=== PATIENT | female | born 1965 | race Caucasian/White ===

== ENCOUNTER 2019-11-12 11:29 | Emergency (ER) | payer OTHER, SELFPAY ==
[2019-11-12 11:45] VITALS: BP 105/67; PULSE 107; RESP 16; TEMP 36.9; O2SAT 96
--- NOTE | 2019-11-12 12:27 | ED.WOUNDLAC ---
HPI - Wound/Laceration General Chief Complaint: Wound/Laceration Stated Complaint: pos abscess Time Seen by Provider: 11/12/19 12:20 Source: patient and RN notes reviewed Mode of arrival: ambulatory Limitations: no limitations History of Present Illness HPI narrative: 53-year-old female presents with concern for wound to her suprapubic area. Reports red, painful area that drained last night in her pubic hair. Reports issues with wounds in the past. She has a history of diabetes. Reports fever of 101 last week. She denies any other symptoms such as shortness of breath, cough, body aches. Body four view annotation: 1. Wound Related Data Home Medications Medication Instructions Recorded Confirmed Trulicity 11/12/19 alprazolam 11/12/19 canagliflozin [Invokana] mg 11/12/19 lisinopril 11/12/19 metformin mg 11/12/19 pantoprazole PO 11/12/19 rosuvastatin mg 11/12/19 venlafaxine mg PO 11/12/19 Allergies Allergy/AdvReac Type Severity Reaction Status Date / Time latex Allergy Severe EYES AND Verified 09/21/18 16:28 ORAL SWELLING, BEATHING DIFFICULTIES levofloxacin Allergy Unknown NAUSEA AND Verified 09/21/18 16:28 VOMITING Review of Systems Review of Systems: Narrative: CONSTITUTIONAL: Denies malaise, chills, sweats, or fever. CARDIOVASCULAR: Denies chest pain, palpitations, or edema. RESPIRATORY: Denies cough or dyspnea. GASTROINTESTINAL: Denies abdominal pain, nausea, vomiting, diarrhea SKIN: Reports pain full, red, swollen area in the pubic hair, drained last night MUSCULOSKELETAL: Denies myalgia. All systems reviewed & are unremarkable except as noted in HPI and below PMFSH Family History Family History (Updated 02/12/16 @ 23:19 by DOCTOR UNKNOWN) Father Family history of diabetes mellitus in first degree relative Family history of malignant neoplasm Sibling Family history of malignant neoplasm of uterus Other Diabetes mellitus Family history of alcoholism Family history of coronary artery disease Hypertension Social History Social History Smoking status: Former smoker Second hand tobacco smoke exposure: No Alcohol intake: never Comments At time of signature, agree with nursing past medical, surgical, social and family history. There is no relevant family history pertinent to the presenting complaint Exam Narrative: Exam Narrative: GENERAL: Well-appearing, well-nourished, and in no acute distress. HEAD: Normocephalic EYES: PERRLA, conjunctivae clear. ENT: Nares clear. Mucous membranes moist. NECK: Supple. CHEST: No respiratory distress. Speaks in full sentences. HEART: Regular rate and rhythm. SKIN: Warm, dry, no rash. Approximately 4 cm x 3 cm area of induration, redness, tenderness with scab with purulent drainage noted in the suprapubic area, no fluctuation noted. NEURO: Alert and oriented x3. PSYCH: Normal mood and affect Course Course Emergency Course: Patient not opening wound due to no fluctuation, current drainage on its own. Patient agrees with this plan. Patient understands to monitor the wound and re-present if symptoms do not improve. Culture will be sent of drainage. Patient is aware of diagnosis, understands and agrees to treatment plan. Anticipatory guidance given. Patient agrees to follow-up as directed and is aware of reasons to seek care at the emergency department. Portions of this record may have been created with voice recognition software Vital Signs Vital signs: Vital Signs Temperature 98.4 F 11/12/19 11:45 Pulse Rate 107 H 11/12/19 11:45 Respiratory Rate 16 11/12/19 11:45 Blood Pressure 105/67 11/12/19 11:45 Pulse Oximetry 96 11/12/19 11:45 Temperature 98.4 F 11/12/19 11:45 Pulse Rate 107 H 11/12/19 11:45 Respiratory Rate 16 11/12/19 11:45 Blood Pressure 105/67 11/12/19 11:45 Pulse Oximetry 96 11/12/19 11:45 Reviewed. MDM - Wound/Laceration MDM Narrative Medi
--- NOTE | 2019-11-12 12:56 | PC.NURSE ---
after dc at 1237 requested note for work. 1247 aware of awaiting computer operations analyst for note. computer operations analyst doing procedure.
== END 2019-11-12 12:37 | disposition home or self-care (01) ==
PROVIDERS: Emergency Provider Nurse Practitioner; PCP Nurse Practitioner Psychiatric/Mental Health
DX: L02.214 Cutaneous abscess of groin (principal); Z87.891 Personal history of nicotine dependence; E11.9 Type 2 diabetes mellitus without complications; E78.00 Pure hypercholesterolemia, unspecified; Z79.84 Long term (current) use of oral hypoglycemic drugs
CPT/HCPCS: 87070; 87147; 87186; 87205; 99213; G0463

== ENCOUNTER 2020-06-19 10:35 | Outpatient (CLI) | payer OTHER, SELFPAY ==
[2020-06-19 12:01] LABS: SARS-CoV-2 Ag Positive (Negative)
== END 2020-06-19 10:36 | disposition home or self-care (01) ==
LOC: CHSLAB 10:39
PROVIDERS: PCP Nurse Practitioner Psychiatric/Mental Health; Visit Provider Nurse Practitioner Psychiatric/Mental Health
DX: U07.1 COVID-19 (principal)
CPT/HCPCS: 87426

== ENCOUNTER 2021-03-17 12:47 | Emergency (ER) | payer OTHER, SELFPAY ==
--- NOTE | ~2021-03-17 | XR_ITS ---
EXAMINATION: XR chest 2V EXAM DATE: 03/17/2021 15:45 INDICATION: weakness, LT Side Flank Pain, Hx Dm, Kidney Stones . TECHNIQUE: Frontal and lateral projections of the chest obtained and reviewed. There is no prior aguilar dy for comparison. FINDINGS: The lungs are clear. There are no pleural effusions. The cardiomediastinal silhouette is within normal limits. There is no pneumothorax suspected. The bones and soft tissues are unremarkab le. IMPRESSION: No acute cardiopulmonary findings. Reviewed, dictated and finalized at location B.
--- NOTE | ~2021-03-17 | CT_ITS ---
EXAMINATION: CT abdomen pelvis w con DATE: 03/17/2021 15:36 INDICATION: Upper abdominal pain. Left flank pain. Fever. TECHNIQUE: Computed tomography (CT) of the abdomen and pelvis was performed with 100 mL Omnipaque 350 intravenous contrast. Automated exposure control and iterative reconstruction technique were employe d. The dose-length product was 706.04 mGy-cm. COMPARISON: None. FINDINGS: The visualized portions of the lung bases demonstrate 3 mm nodules in left lower lobe, like ly benign. A calcified left lung nodule and calcified left hilar lymph nodes are consistent with old granulomatous disease. No pleural effusion. The heart size is normal. No pericardial effusion. There is a small sliding hiatal hernia. The liver is normal. There are changes of cholecystectomy. Calcific ations in the spleen are consistent with old granulomatous disease. The pancreas and adrenal glands a re normal. There is cortical thinning of the kidneys, right worse than left. There are 4 mm and 2 mm stones in right kidney. Other small calcifications in right kidney may be parenchymal. There are grea ter than ten 1-2 mm stones in left kidney. The appendix is normal. There are no dilated loops of agustín l. There are no pathologically enlarged lymph nodes. There is no free intraperitoneal fluid. There is mild thoracolumbar spondylosis. IMPRESSION: 1. Small sliding hiatal hernia. 2. Small bilateral nonobstructing kidney stones. Reviewed, dictated and finalized at location A.
[2021-03-17 13:18] VITALS: BP 132/71; PULSE 131; RESP 18; TEMP 37.6; O2SAT 98
[2021-03-17 13:56] LABS: Basophils Percent Auto 0.1 % (0.2-1.2); Eosinophils Percent Auto 0.1 % (0-4.4); Hemoglobin 14.2 g/dL (12.0-15.0); Immature Granulocyte Absolute 0.07 K/mm3 (0.00-0.031); Immature Granulocyte Percent A 0.4 % (0-0.5); Lymphocytes Absolute Auto 0.95 K/mm3 (0.9-3.2); Mean Corpuscular HGB Conc 31.6 g/dl (32-36); Mean Corpuscular Hemoglobin 27.2 pg (26-34); Mean Corpuscular Volume 86.2 fl (80-100); Mean Platelet Volume 10.2 fl (7.4-10.4); Monocytes Absolute Auto 0.8 K/mm3 (0.1-0.6); Neutrophils Percent Auto 88.4 % (45.5-73.1); Platelet Count Result 299 k/mm3 (150-375); Red Blood Count 5.22 M/mm3 (4.2-5.4); Red Cell Distribution Width 14.4 % (11.5-14.5); White Blood Count 15.9 K/mm3 (4.5-10.0)
[2021-03-17 14:02] LABS: Add Urine Microscopic? YES; Appearance Urine Clear (Clear); Bilirubin Urine Negative (Negative); Blood Urine Negative (Negative); Color Urine Straw (Yellow); Glucose Urine UA 3+ mg/dL (Negative); Ketones Urine Negative (Negative); Leukocyte Esterase Ur Negative LEU/UL (Negative); Nitrate Urine Negative (Negative); Protein Urine Negative (Negative); Specific Grav Ur 1.008 (1.001-1.035); Squamous Epithelial Cell Urine Rare /hpf (Few); Urobilinogen Urine Negative mg/dL (<2.0); WBC Urine 0-3 /hpf
[2021-03-17 14:16] VITALS: BP 103/65; PULSE 62; RESP 16; O2SAT 98
[2021-03-17 14:22] LABS: Anion Gap 17 mmol/L (8-16); Blood Urea Nitrogen 15 mg/dL (7-17); Calcium 9.9 mg/dL (8.4-10.2); Carbon Dioxide 25 mmol/L (22-30); Chloride 98 mmol/L (98-107); Estimated CRCL calculation 84 ml/min; Estimated Glomerular Filt Rate > 60; Glucose 129 mg/dL (65-110); Potassium 3.8 mmol/L (3.4-5.0); Sodium 140 mmol/L (137-145)
--- NOTE | 2021-03-17 14:49 | ED.GENADULT ---
HPI - General Adult General Chief complaint: Urogenital-Female Stated complaint: Kidney Stone Time Seen by Provider: 03/17/21 14:17 Source: patient and RN notes reviewed Mode of arrival: ambulatory Limitations: no limitations History of Present Illness HPI narrative: This is a 55 year old female with history of kidney stones who presents for evaluation of left flank pain and nausea. Patient states she developed left flank pain yesterday. Her pain has been constant and she states it radiates to her left back. She is concerned she may have a kidney stone. She made an appointment with her urologist but she was referred to ER since she develop fever 100.5 today. She also reports prior to arrival she develop and emesis x 2. She also reports right upper abdominal pain. She denies taking any medication for her fever today. She denies cough or sob. She denies hematuria but she reports increased urination. Related Data Home Medications Medication Instructions Recorded Confirmed alprazolam 11/12/19 10/07/20 Trulicity SUBCUT 10/07/20 10/07/20 dapagliflozin 10 mg tablet 10 mg PO DAILY 10/07/20 10/07/20 lisinopril 10 mg tablet 10 mg PO DAILY tablet 10/07/20 10/07/20 metformin 1,000 mg tablet 1,000 mg PO BID tablet 10/07/20 10/07/20 pantoprazole 40 mg tablet,delayed 40 mg PO DAILY tablet 10/07/20 10/07/20 release rosuvastatin 40 mg tablet 40 mg PO DAILY tablet 10/07/20 10/07/20 sertraline 50 mg tablet 50 mg PO DAILY 10/07/20 10/07/20 Allergies Allergy/AdvReac Type Severity Reaction Status Date / Time levofloxacin AdvReac Unknown NAUSEA AND Verified 03/17/21 14:15 VOMITING Review of Systems Review of Systems: All systems reviewed & are unremarkable except as noted in HPI and below PMFSH Past Medical History Medical History (Updated 03/17/21 @ 18:01 by Chely Graves MD) Anxiety Diabetes GERD (gastroesophageal reflux disease) Kidney stone Surgical History Surgical History (Updated 03/17/21 @ 14:56 by Chely Graves MD) H/O lithotripsy Family History Family History (Updated 02/12/16 @ 23:19 by DOCTOR UNKNOWN) Father Family history of diabetes mellitus in first degree relative Family history of malignant neoplasm Sibling Family history of malignant neoplasm of uterus Other Diabetes mellitus Family history of alcoholism Family history of coronary artery disease Hypertension Social History Social History (Updated 10/06/20 @ 07:30 by Caitlin Meade) Smoking status: Never smoker Second hand tobacco smoke exposure: No Alcohol intake: never Substance use: never Additional occupation/education comments: RN at [employer] Gender identity (if verbalized by the patient): Female Exam Const: General: no acute distress and alert Orientation/consciousness: patient oriented x3 Eyes: EOM: EOMs intact bilaterally Chest: Chest palpation & inspection: normal inspection of the chest Resp: Effort & Inspection: normal respiratory effort and no retractions Auscultation: clear to auscultation bilaterally Cardio: Rate: regular rate Rhythm: regular rhythm Heart sounds: no murmurs GI: GI Palp: Yes Soft to palpation, Yes Tenderness to palpation present (GI) (RUQ, LUQ) and No Guarding due to palpation present (GI) Auscultation: normal bowel sounds : General: Yes CVA tenderness on the left Skin: General skin exam: normal color Rashes: no rashes Neuro: General: patient oriented x3, moves all extremities and CN's II-XI intact bilaterally Extrem: General: normal to inspection Psych: Mental Status: mental status grossly normal Affect: normal affect Course Reevaluation(s) Reevaluation #1: I Discussed with patient here she was found to have leukocytosis which may be stress reaction. There are no obstructing stones and no UTI. I Discuss that she will need to look out for rash on flank as it could be shingles. She will follow p with PCP Date: 03/17/21 Time: 17
[2021-03-17] MEDS: ONDANSETRON INJ 4 MG/2 ML VIAL IV PUSH (14:54)
[2021-03-17] MEDS: HYDROmorphone HCL INJ (*CRX) 1 MG/ML SYR IV PUSH (14:54)
[2021-03-17] MEDS: SODIUM CHLORIDE 0.9% IV 1,000 ML 999 ML IV CONT (14:54)
[2021-03-17 16:00] VITALS: BP 115/68; PULSE 100; RESP 16; O2SAT 97
[2021-03-17 17:13] LABS: Lactic Acid Reflex 0.8 mmol/L (0.7-2.1)
[2021-03-17 17:14] LABS: Alanine Aminotransferase 13 U/L (4-35); Albumin Level 4.2 g/dL (3.5-5.1); Alkaline Phosphatase 79 U/L (38-126); Aspartate Amino Transferase 22 U/L (14-36); Bilirubin,Total 0.4 mg/dL (0.2-1.3); Lipase 95 U/L (23-300)
[2021-03-17 18:19] VITALS: BP 124/88; PULSE 86; RESP 16; O2SAT 100
== END 2021-03-17 18:21 | disposition home or self-care (01) ==
PROVIDERS: Emergency Medicine; Emergency Provider General Practice; PCP Emergency Medicine
DX: N20.0 Calculus of kidney (principal); F41.9 Anxiety disorder, unspecified; E11.9 Type 2 diabetes mellitus without complications; K21.9 Gastro-esophageal reflux disease without esophagitis
CPT/HCPCS: 36415; 71046; 74177; 80048; 80076; 81001; 81025; 83605; 83690; 85025; 96361; 96374; 96375; 99284; J1170; J2405; J7030; Q9967

== ENCOUNTER 2024-04-26 08:08 | Emergency (ER) | payer OTHER, SELFPAY ==
[2024-04-26 08:17] VITALS: BP 107/77; PULSE 112; RESP 18; TEMP 36.6; O2SAT 98
--- NOTE | 2024-04-26 08:17 | ED.SKABFB ---
HPI - Skin/Abscess/Foreign Bdy General Chief complaint: Skin/Abscess/Foreign Body Stated complaint: shingles Time Seen by Provider: 04/26/24 08:17 Source: patient, RN notes reviewed and old records reviewed Mode of arrival: ambulatory Limitations: no limitations History of Present Illness HPI narrative: patient presents with complaints of painful red blistery rash to right side of the lower back. She believes the rash just appeared yesterday, but does admit that she had some pain for a day or 2 prior to the rash appearing. Patient does have a history of chickenpox as a child. In addition to the rash, she does report lack of energy and being more tired than normal. She has not taken anything for her symptoms, has not tried any topicals. Related Data Home Medications Medication Instructions Recorded Confirmed dapagliflozin propanediol 10 mg 5 mg PO DAILY 07/26/22 04/26/24 tablet (Farxiga) tirzepatide 15 mg/0.5 mL mg subcut 04/26/24 subcutaneous pen injector (Mounjaro) Allergies Allergy/AdvReac Type Severity Reaction Status Date / Time latex Allergy Mild Rash Verified 04/26/24 08:19 levofloxacin AdvReac Unknown NAUSEA AND Verified 04/26/24 08:19 VOMITING Review of Systems Review of Systems: All systems reviewed & are unremarkable except as noted in HPI and below Constitutional: Constitutional: Reports as per HPI, Reports no additional constitutional complaints, Reports fatigue and Reports lethargy ENT: Reports system reviewed and no additional complaints, except as documented Cardiovascular: Cardiovascular: Reports no additional cardiovascular complaints Respiratory: Respiratory: Reports no additional respiratory complaints Gastrointestinal: Gastrointestinal: Reports no additional gastrointestinal complaints Integumentary/Breasts: Skin/Breast: Reports system reviewed and no additional complaints, except as docu, Reports as per HPI, Reports new lesions and Reports other ( Painful rash to right lower back) [facility] Past Medical History Medical History ADD (attention deficit disorder) ADHD Anxiety BMI 32.0-32.9,adult Depression Diabetes Encounter to establish care GERD (gastroesophageal reflux disease) Kidney stone Right shoulder pain Surgical History Surgical History H/O lithotripsy Family History Family History Father Family history of diabetes mellitus in first degree relative Family history of malignant neoplasm Sibling Family history of malignant neoplasm of uterus Other Diabetes mellitus Family history of alcoholism Family history of coronary artery disease Hypertension Social History Social History Smoking status: Never smoker Second hand tobacco smoke exposure: No Alcohol intake: never Substance use: never Current Housing: Decline to Answer Concerned About Future Housing: Decline to Answer Difficulty Paying Gas/Electric Bills: Decline to Answer Difficulty Paying for Meds: Decline to Answer Currently Unemployed: Decline to Answer Education: Decline to Answer Difficulty w/ Childcare or Family Care: Decline to Answer Occupation/Education: occupation 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 There is no relevant family history pertinent to the patient complaint. Exam Const: General: cooperative, no acute distress, alert, awake and uncomfortable Orientation/consciousness: oriented to person, oriented to place and oriented to time HENMT: Head: normal to inspection Resp: Effort & Inspection: normal respiratory effort and able to
[2024-04-26 08:22] VITALS: BP 107/77; PULSE 112; RESP 18; TEMP 36.6; O2SAT 98
== END 2024-04-26 08:42 | disposition home or self-care (01) ==
PROVIDERS: Emergency Provider Nurse Practitioner Family; PCP Hospitalist
DX: B02.9 Zoster without complications (principal); E11.9 Type 2 diabetes mellitus without complications; Z79.84 Long term (current) use of oral hypoglycemic drugs; K21.9 Gastro-esophageal reflux disease without esophagitis
CPT/HCPCS: 99213; G0463